=== PATIENT | male | born 1965 | race African-American/Black ===

== ENCOUNTER 2017-07-28 15:07 | Emergency (ER) | payer OTHER ==
[~2017-07-28] VITALS: Ht 170.2 cm; Wt 73.0 kg
[2017-07-28] MEDS ORDERED: AMLO2.5T45 PO (15:10)
[2017-07-28] MEDS ORDERED: MAGNESIUM/ALUMINUM HYDROXIDE/SIMETHICONE 30ML UDC PO STA (17:47)
[2017-07-28] MEDS ORDERED: DICYCLOMINE 10 MG/5 ML ORAL SYR PO STA (17:47)
[2017-07-28] MEDS ORDERED: ONDANSETRON 4MG ODT PO STA (17:47)
[2017-07-28] MEDS ORDERED: VISCOUS LIDOCAINE 2% 15 ML UDC PO STA (17:47)
[2017-07-28] MEDS ORDERED: ACETAMINOPHEN 325MG TABLET PO STA (17:47)
[2017-07-28 18:27] LABS: BASOPHILS % 0.4 % (0.0-2.0); EOSINOPHILS % 4.6 % (0.0-5.0); HEMATOCRIT. 43.3 % (42.0-52.0); HEMOGLOBIN. 14.9 g/dL (14.0-18.0); LYMPHOCYTES % 13.6 % (20.0-50.0); MEAN CORPUSCULAR VOLUME 92.8 fL (80.0-94.0); NEUTROPHILS % 75.4 % (40.0-76.0); PLATELET 238 x1000/uL (130-400); RED BLOOD CELL COUNT 4.66 mill/uL (4.7-6.1); RED CELL DISTRIBUTION WIDTH 12.6 % (11.6-14.6)
[2017-07-28 18:34] LABS: CHLORIDE 102 mEq/L (98-107); INR 1.1; PROTHROMBIN TIME 11.1 sec (9.4-11.6)
[2017-07-28 18:44] LABS: CARBON DIOXIDE 31 mEq/L (21-32)
[2017-07-28 18:58] VITALS: BP 136/91
[2017-07-28 19:04] LABS: CLARITY URINE CLEAR (CLEAR); COLOR URINE YELLOW (YELLOW); KETONES URINE TRACE (NEGATIVE); LEUKOCYTE ESTERASE URINE TRACE (NEGATIVE); NITRITE URINE NEGATIVE (NEGATIVE); OCCULT BLOOD URINE NEGATIVE (NEGATIVE); PH URINE 5.5 (4.5-8.0); PROTEIN URINE NEGATIVE (NEGATIVE); SPECIFIC GRAVITY URINE 1.025 (1.005-1.030)
== END 2017-07-28 19:30 | disposition home or self-care (01) ==
LOC: ER 15:50
DX: R10.13 Epigastric pain (principal); I10 Essential (primary) hypertension; E78.00 Pure hypercholesterolemia, unspecified; Z88.8 Allergy status to other drugs, medicaments and biological substances
CPT/HCPCS: 36415; 80053; 81001; 83690; 85025; 85610; 99284; Q0162